=== PATIENT | male | born 1995 | race Caucasian/White ===

== ENCOUNTER 2024-05-02 20:38 | Emergency (ER) | payer MEDICAID, OTHER ==
[~2024-05-02] VITALS: Ht 152.4 cm; Wt 54.4 kg
[2024-05-02 20:59] VITALS: BP 129/69; TEMP 98.3
[2024-05-02 22:46] VITALS: O2SAT 99
== END 2024-05-02 22:47 | disposition home or self-care (01) ==
LOC: ER 20:47
DX: S40.212A Abrasion of left shoulder, initial encounter (principal); M79.602 Pain in left arm; X58.XXXA Exposure to other specified factors, initial encounter; Y93.9 Activity, unspecified; Y92.89 Other specified places as the place of occurrence of the external cause; Y99.8 Other external cause status